=== PATIENT | female | born 1960 | race Hispanic/Latino ===

== ENCOUNTER 2020-09-01 06:10 | Day surgery (SDC) | payer BC ==
[2020-08-26 11:27] LABS: BASOPHILS % (AUTO) 0.5 % (0.0-5.0); EOSINOPHILS % (AUTO) 1.8 % (0.0-8.0); HEMATOCRIT 39.8 % (36-48); LYMPHOCYTES % (AUTO) 21.8 % (21.0-51.0); MEAN CORPUSCULAR HEMOGLOBIN 29.8 pg (27.0-33.0); MEAN CORPUSCULAR HGB CONC 33.7 g/dL (32.0-36.0); MEAN CORPUSCULAR VOLUME 88.6 fL (79-99); NEUTROPHILS % (AUTO) 69.7 % (40.0-77.0); PLATELET COUNT (AUTO) 177 K/uL (130-400); RED BLOOD CELL COUNT(AUTO) 4.49 MIL/uL (4.00-5.50); WHITE BLOOD COUNT (AUTO) 4.4 K/uL (4.8-10.8)
[2020-08-26 11:37] LABS: ALBUMIN 3.9 g/dL (3.5-5.0); BILIRUBIN,TOTAL 0.5 mg/dL (0.2-1.0); CREATININE 0.6 mg/dL (0.5-1.5); POTASSIUM 4.3 mmol/L (3.5-5.1)
[2020-08-31 15:30] VITALS: BP 108/46
[2020-09-01] VITALS (18 sets, daily range): BP systolic 102–121; BP diastolic 34–72
[~2020-09-01] VITALS: Ht 165.1 cm; Wt 53.3 kg
[~2020-09-01 06:10] MED LIST: ALBU0.63 IH; DICL1KIT14 TP; ESTR50GE TD
[2020-09-01] MEDS ORDERED: BUPIVACAINE/PF 0.5% 10ML VIAL ONE (06:51)
[2020-09-01] MEDS ORDERED: BUPIVACAINE/EPI/PF 0.5% 30ML VIAL IJ ONE (07:03)
[2020-09-01] MEDS ORDERED: PROPOFOL 10 MG/ML 20ML VIAL IV ONE (07:15)
[2020-09-01] MEDS ORDERED: SUCCINYLCHOLINE CHLORIDE 20 MG/ML 10 ML VIAL ONE (07:15)
[2020-09-01] MEDS ORDERED: LIDOCAINE PF 2% 5ML ABBOJECT ONE (07:15)
[2020-09-01] MEDS ORDERED: ROCURONIUM 10MG/1ML SYR 10 MG/ML ML ONE (07:16)
[2020-09-01] MEDS ORDERED: FENTANYL CITRATE PF 50 MCG/1 ML 2ML VIAL ONE (07:16)
[2020-09-01] MEDS ORDERED: LIDOCAINE 1%-EPI 1:100,000 20 ML VIAL IJ ONE (07:40)
[2020-09-01] MEDS ORDERED: LACTATED RINGERS 1000ML 1,000 ML IV ONE (07:49)
[2020-09-01] MEDS ORDERED: IOHEXOL-350 50ML VIAL IV ONE (07:50)
[2020-09-01] MEDS: CEFAZOLIN SODIUM 1 GM VIAL IVP ONE ×2 (07:57→08:10)
[2020-09-01] MEDS ORDERED: KETOROLAC TROMETHAMINE 30MG/ML ONE (08:45)
[2020-09-01] MEDS ORDERED: ONDANSETRON HCL 4 MG/2 ML VIAL ONE (08:45)
[2020-09-01] MEDS ORDERED: GLYCOPYRROLATE 1 MG/5 ML SYRINGE ONE (08:45)
[2020-09-01] MEDS ORDERED: NEOSTIGMINE 5MG/5ML SYR IV ONE (08:45)
[2020-09-01] MEDS ORDERED: MEPERIDINE-PF 25 MG/ML SYG ONE (09:07)
--- NOTE | 2020-09-01 10:05 | NUR ---
day pt arrival pt in from holding with nurse annmarie . alert and oriented denies discomfort. 4 bandaids to abdomen tht appear clean and dry.
--- NOTE | 2020-09-01 11:00 | NUR ---
day pt dc Pt dcd to main ER entrance, appears in no apparent distress, states nausea at times.
== END 2020-09-01 11:00 | disposition home or self-care (01) ==
LOC: DAH 06:10
PROVIDERS: ATTEND Surgery
DX: K80.20 Calculus of gallbladder without cholecystitis without obstruction (principal); Z90.710 Acquired absence of both cervix and uterus; J44.9 Chronic obstructive pulmonary disease, unspecified; Z20.828 Contact with and (suspected) exposure to other viral communicable diseases; Z79.899 Other long term (current) drug therapy
CPT/HCPCS: 36415; 47562; 80053; 85025; 93005; A4215 ×2; A4221; A4222; A4223; A4600; A4649 ×3; A4657; C1769 ×4; C9803; G0168; J0330; J0690; J1885; J2001; J2175; J2405; J2704; J2710; J3010; J3490 ×3; J7120; Q9967; U0003

== ENCOUNTER → 2023-03-16 | Outpatient (CLI) | payer OTHER | END | disposition home or self-care (01) | LOC: RAH 08:35 | PROVIDERS: ATTEND Internal Medicine Cardiovascular Disease | DX: Z13.6 Encounter for screening for cardiovascular disorders (principal) | CPT/HCPCS: 75571 ==

== ENCOUNTER 2023-09-05 05:36 | Observation (INO) | payer BC, OTHER ==
[2023-09-05] VITALS (24 sets, daily range): BP systolic 102–132; BP diastolic 42–95; PULSE 74–95; RESP 10–17; O2SAT 97–98
[~2023-09-05] VITALS: Ht 165.1 cm; Wt 57.4 kg
[2023-09-05] MEDS ORDERED: MORPHINE 2 MG SYG IVP ONE (06:00)
[2023-09-05] MEDS ORDERED: ONDANSETRON 4MG INJ IVP ONE (06:00)
[2023-09-05] MEDS ORDERED: LACTATED RINGERS 1000ML 1,000 ML IV ONE ×2 (06:00→12:28)
[2023-09-05 06:11] LABS: BASOPHILS # (AUTO) 0.03 K/uL (0.00-0.20); BASOPHILS % (AUTO) 0.2 % (0.0-5.0); EOSINOPHILS # (AUTO) 0.01 K/uL (0.00-0.70); EOSINOPHILS % (AUTO) 0.1 % (0.0-8.0); HEMATOCRIT 39.8 % (36-48); IMMATURE GRANULOCYTE ABSOLUTE 0.04 K/uL (0-1); LYMPHOCYTES # (AUTO) 0.5 K/uL (1.0-4.8); LYMPHOCYTES % (AUTO) 4.1 % (21.0-51.0); MEAN CORPUSCULAR HEMOGLOBIN 28.9 pg (27.0-33.0); MEAN CORPUSCULAR HGB CONC 32.9 g/dL (32.0-36.0); MEAN CORPUSCULAR VOLUME 87.9 fL (79-99); MONOCYTES # (AUTO) 0.6 K/uL (0.1-1.0); MONOCYTES % (AUTO) 4.6 % (3.0-13.0); NEUTROPHILS # (AUTO) 11.4 K/uL (1.8-7.7); NEUTROPHILS % (AUTO) 90.7 % (40.0-77.0); PLATELET COUNT (AUTO) 172 K/uL (130-400); RED BLOOD CELL COUNT(AUTO) 4.53 MIL/uL (4.00-5.50); RED CELL DISTRIBUTION WIDTH 12.4 % (11.0-15.5); WHITE BLOOD COUNT (AUTO) 12.6 K/uL (4.8-10.8)
[2023-09-05 06:21] LABS: ALBUMIN 3.9 g/dL (3.5-5.0); CREATININE 0.7 mg/dL (0.5-1.5); POTASSIUM 4.1 mmol/L (3.5-5.1); TOTAL PROTEIN, SERUM 7.8 g/dL (6.0-8.3)
[2023-09-05] MEDS ORDERED: IOHEXOL 350 MG/ML 100ML INFUS..BTL IV ONE (06:37)
[2023-09-05 07:34] LABS: APPEARANCE,URINE CLEAR (CLEAR); BILIRUBIN,URINE NEGATIVE (NEGATIVE); COLOR,URINE COLORLESS (YELLOW); GLUCOSE, URINE (UA) NEGATIVE (NEGATIVE); KETONES,URINE 5 mg/dL (NEGATIVE); LEUKOCYTE ESTERASE ,URINE NEGATIVE Leu/uL (NEGATIVE); NITRATE,URINE NEGATIVE (NEGATIVE); OCCULT BLOOD,URINE NEGATIVE (NEGATIVE); PH,URINE 7.5 (5.0-8.0); PROTEIN,URINE NEGATIVE (NEGATIVE); UROBILINOGEN,URINE 0.2 mg/dL (0.2-1.0)
[2023-09-05 07:37] LABS: ADD UA MICROSCOPIC YES
[2023-09-05] MEDS ORDERED: DiphenhydrAMINE HCL 50 MG/ML VIAL IV PRN (08:00)
[2023-09-05] MEDS ORDERED: METOCLOPRAMIDE 10 MG/2 ML VIAL IVP ONE (08:00)
[2023-09-05] MEDS ORDERED: GUAIFENESIN-DM 200/20 MG 10 ML PO PRN (08:00)
[2023-09-05] MEDS ORDERED: NITROGLYCERIN 0.4 MG SL TAB SL PRN (08:00)
[2023-09-05] MEDS ORDERED: ACETAMINOPHEN 325 MG TAB PO PRN ×2 (08:00)
[2023-09-05] MEDS ORDERED: MAG/ALUM/SIMETH 30 ML UDCUP PO PRN (08:00)
[2023-09-05] MEDS ORDERED: FAMOTIDINE 20MG VIAL IV ONE (08:00)
[2023-09-05] MEDS ORDERED: LACTULOSE 20 GM/30 ML UDCUP PO PRN (08:00)
[2023-09-05] MEDS ORDERED: DIPHENHYDRAMINE HCL 25 MG CAPSULE PO PRN (08:00)
[2023-09-05] MEDS ORDERED: MAGNESIUM 2GM PREMIX 50ML 50 ML IV PRN (08:00)
[2023-09-05] MEDS ORDERED: HYDROMORPHONE 1 MG INJ IV PRN (08:00)
[2023-09-05] MEDS ORDERED: CEFTRIAXONE 2GM VIAL IVPB ONE (08:00)
[2023-09-05] MEDS ORDERED: POTASSIUM CHLORIDE 10% ELIXIR 20 MEQ/15 ML UDCUP PO PRN (08:00)
[2023-09-05] MEDS ORDERED: HYDROCODONE/ACETAMINOPHEN 5/325 MG TAB PO PRN ×2 (08:00)
[2023-09-05] MEDS ORDERED: POTASSIUM CHLORIDE 20MEQ/100ML 100 ML IV PRN (08:00)
[2023-09-05] MEDS ORDERED: ONDANSETRON 4MG INJ IV PRN (08:00)
[2023-09-05] MEDS ORDERED: 0.9%NACL 1000ML 1,000 ML IV ONE (08:00)
[2023-09-05 08:08] LABS: WBC,URINE 0-1 /HPF (0-1)
[2023-09-05] MEDS: 0.9%NACL 1000ML 1,000 ML IV SCH ×2 (08:18→15:11)
[2023-09-05] MEDS: FAMOTIDINE 20MG TAB PO SCH ×2 (08:18→21:22)
[2023-09-05] MEDS ORDERED: DULO60CA45 PO (08:39)
[2023-09-05] MEDS ORDERED: ALBU6.7H14 IH (08:39)
[2023-09-05] MEDS ORDERED: TIOT4MIS3 IH (08:39)
[2023-09-05] MEDS ORDERED: FAMOTIDINE 20MG VIAL IV SCH (09:00)
[2023-09-05] MEDS: ENOXAPARIN SODIUM 30 MG/0.3 ML SQ SCH (09:13)
[2023-09-05] MEDS ORDERED: ZOSYN 3.375GM+NS 50ML 50 ML ONE (12:27)
[2023-09-05] MEDS ORDERED: LIDOCAINE PF 100MG/5ML (2%) SYRINGE 5ML ONE (12:40)
[2023-09-05] MEDS ORDERED: SUCCINYLCHOLINE 200MG/10ML SYR ONE (12:40)
[2023-09-05] MEDS ORDERED: ROCURONIUM 10MG/1ML SYR 10 MG/ML ML ONE (12:41)
[2023-09-05] MEDS ORDERED: FENTANYL CITRATE PF 50 MCG/1 ML 2ML VIAL ONE (12:41)
[2023-09-05] MEDS ORDERED: PROPOFOL 10 MG/ML 20ML VIAL IV ONE (12:41)
[2023-09-05] MEDS ORDERED: MIDAZOLAM HCL 1 MG/ML 2ML VIAL ONE (12:41)
[2023-09-05] MEDS ORDERED: BUPIVACAINE/PF 0.25% 30ML VIAL IJ ONE (13:00)
[2023-09-05] MEDS: ZOSYN 3.375GM+NS 50ML 50 ML IV SCH ×2 (13:07→21:24)
[2023-09-05] MEDS ORDERED: NEOSTIGMINE 5MG/5ML SYR IV ONE (13:22)
[2023-09-05] MEDS ORDERED: GLYCOPYRROLATE 1 MG/5 ML SYRINGE ONE (13:22)
[2023-09-05] MEDS ORDERED: MEPERIDINE-PF 25 MG/ML SYG ONE (13:52)
[2023-09-05] MEDS ORDERED: TRAMADOL HCL 50 MG TABLET PO PRN (15:00)
[2023-09-05] MEDS: SIMETHICONE 80 MG TAB.CHEW PO SCH (21:00)
[2023-09-06] VITALS: BP 119/60; PULSE 81; RESP 17
[2023-09-06] MEDS: 0.9%NACL 1000ML 1,000 ML IV SCH (01:50)
[2023-09-06 04:00] VITALS: BP 107/56; PULSE 72; RESP 17
[2023-09-06] MEDS: ZOSYN 3.375GM+NS 50ML 50 ML IV SCH (04:02)
[2023-09-06 04:26] LABS: BASOPHILS # (AUTO) 0.02 K/uL (0.00-0.20); BASOPHILS % (AUTO) 0.2 % (0.0-5.0); EOSINOPHILS # (AUTO) 0.02 K/uL (0.00-0.70); EOSINOPHILS % (AUTO) 0.2 % (0.0-8.0); HEMATOCRIT 33.1 % (36-48); IMMATURE GRANULOCYTE ABSOLUTE 0.03 K/uL (0-1); LYMPHOCYTES # (AUTO) 0.8 K/uL (1.0-4.8); LYMPHOCYTES % (AUTO) 9.7 % (21.0-51.0); MEAN CORPUSCULAR HEMOGLOBIN 28.8 pg (27.0-33.0); MEAN CORPUSCULAR HGB CONC 32.6 g/dL (32.0-36.0); MEAN CORPUSCULAR VOLUME 88.3 fL (79-99); MONOCYTES # (AUTO) 0.4 K/uL (0.1-1.0); MONOCYTES % (AUTO) 4.7 % (3.0-13.0); NEUTROPHILS # (AUTO) 7.1 K/uL (1.8-7.7); NEUTROPHILS % (AUTO) 84.8 % (40.0-77.0); PLATELET COUNT (AUTO) 145 K/uL (130-400); RED BLOOD CELL COUNT(AUTO) 3.75 MIL/uL (4.00-5.50); RED CELL DISTRIBUTION WIDTH 12.8 % (11.0-15.5); WHITE BLOOD COUNT (AUTO) 8.4 K/uL (4.8-10.8)
[2023-09-06 04:28] LABS: HEMOGLOBIN A1C 5.1 % (4.0-6.0)
[2023-09-06 04:36] LABS: % IRON SATURATION 8.4 % (22-44)
[2023-09-06 04:45] LABS: CREATININE 0.7 mg/dL (0.5-1.5); MAGNESIUM 1.8 mg/dL (1.80-2.40); PHOSPHORUS 3.1 mg/dL (2.5-4.9); POTASSIUM 3.5 mmol/L (3.5-5.1); THYROID STIMULATING HORMONE 0.6 uIU/mL (0.36-3.74)
[2023-09-06] MEDS: KCL 20 MEQ ERTAB PO PRN ×2 (05:10→09:10)
[2023-09-06 08:00] VITALS: BP 119/61; PULSE 71; RESP 16; O2SAT 98
[2023-09-06] MEDS: SIMETHICONE 80 MG TAB.CHEW PO SCH (09:00)
[2023-09-06] MEDS: ENOXAPARIN SODIUM 30 MG/0.3 ML SQ SCH (09:09)
[2023-09-06] MEDS: FAMOTIDINE 20MG TAB PO SCH (09:09)
[2023-09-06 12:00] VITALS: BP 131/78; PULSE 76; RESP 16
== END 2023-09-06 14:10 | disposition home or self-care (01) ==
LOC: EDH 05:36 → INTOOBSV 08:00 → EDHIP 08:00 → 4AH 10:45
PROVIDERS: ADMIT Internal Medicine; ATTEND Internal Medicine
DX: K35.80 Unspecified acute appendicitis (principal); J44.9 Chronic obstructive pulmonary disease, unspecified; K56.41 Fecal impaction; Z90.710 Acquired absence of both cervix and uterus; Z79.899 Other long term (current) drug therapy
CPT/HCPCS: 44970; 96372 ×2; 96366 ×3; 96375 ×2; 96368; 99285; 82150; 82550; 84484; 80053; 83690; 85025 ×2; 87040 ×2; 81001; 36415 ×2; 88304; 74178; 96365; 93005; 96361; 96367; 83036; 84443; 83540; 83550; 83735; 84100; 80048; A6207; J7030; A4344; J7120 ×2; J3490 ×2; J0330; J2710; J2270; J0665; J0696; J2001; J1650 ×2; J2250; J2704; J2405; J2543 ×3; J2175; J2765; Q9967; A6206; C1769 ×3; A4649 ×3; A4930 ×2; A4223; A4222; A4216; A4600; G0378 ×2; J3475; J3010

== ENCOUNTER → 2023-11-20 | Outpatient (CLI) | payer OTHER ==
[~2023-11-20] MED LIST changes: -ALBU0.63 IH; +ALBU6.7H14 IH; -DICL1KIT14 TP; +DULO60CA45 PO; -ESTR50GE TD; +TIOT4MIS3 IH
== END | disposition home or self-care (01) ==
LOC: OIH 08:47
PROVIDERS: ATTEND Internal Medicine Cardiovascular Disease
DX: Z13.6 Encounter for screening for cardiovascular disorders (principal)
CPT/HCPCS: 75571

== ENCOUNTER → 2023-12-10 | Outpatient (CLI) | payer BC | END | disposition home or self-care (01) | LOC: SHCH 15:18 | PROVIDERS: ATTEND Internal Medicine Cardiovascular Disease | DX: I08.0 Rheumatic disorders of both mitral and aortic valves (principal); R00.2 Palpitations | CPT/HCPCS: 93306 ==